=== PATIENT | male | born 1970 | race Caucasian/White ===

== ENCOUNTER 2021-11-17 18:13 | Emergency (ER) | payer OTHER ==
[~2021-11-17] VITALS: Ht 175.3 cm; Wt 123.8 kg
[2021-11-17 20:35] VITALS: BP 123/60
--- NOTE | 2021-11-17 20:55 | PHYS DOC ---
Past History Past Surgical History: Appendectomy (NAKIA HUSSEIN APRN) General Adult EDM: Chief Complaint: LOWER EXT PAIN HPI: HPI: Patient is a 51-year-old male who presents with bilateral lower extremity swelling and pain to his left lower leg that started 2 days ago. Patient reports that the swelling initially started 2 weeks ago. He reports at rest he does not have any pain but with palpation he has increased pain. Patient has a history of colon cancer, gastric bypass and GERD. He denies any injuries, chest pain, shortness of breath, abdominal or upper extremity swelling, fevers, history of DVTs, history of CHF. 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 [] HENT: Normocephalic, atraumatic, bilateral external ears normal, oropharynx moist, no oral exudates, nose normal. [] Eyes: PERRL, EOMI, conjunctiva normal, no discharge. [] Neck: Normal range of motion, no stridor Cardiovascular:Heart rate regular rhythm, no murmur [] Lungs & Thorax: Bilateral breath sounds clear to auscultation [] Abdomen: Bowel sounds normal, soft, no tenderness, obese, no masses, no pulsatile masses. [] Skin: Warm, dry, mild anterior erythema noted to anterior aspect of bilateral lower extremities Back: Normal range of motion Extremities: No tenderness, no cyanosis, no clubbing, ROM intact, 2+ pitting edema noted to right lower extremity, 3+ pittingedema noted to left lower extremity, strong DP pulse bilaterally Neurologic: Alert and oriented X 3, normal motor function, normal sensory function, no focal deficits noted. [] Psychologic: Affect normal, judgement normal, mood normal. [] (NAKIA HUSSEIN APRN) Current Patient Data: Vital Signs: Vital Signs Date Time Temp Pulse Resp B/P (MAP) Pulse Ox O2 Delivery O2 Flow Rate FiO2 11/17/21 20:35 98.0 73 24 123/60 (81) 99 Room Air (NAKIA HUSSEIN APRN) EKG: EKG: EKG performed by ER staff at 2058 shows sinus rhythm with rate of 67, QTc is 434, no STEMI read by Dr. Soriano 2100[] (NAKIA HUSSEIN APRN) Radiology/Procedures: Radiology/Procedures: [] (NAKIA HUSSEIN APRN) Impressions: STUDY: US BILATERAL LOWEREXTREMITY VENOUS DOPPLER INDICATION: Leg swelling and redness. DVT. TECHNIQUE: Color-flow and pulsed wave duplex ultrasound with compression of venous structures of the bilateral lower extremities. COMPARISON: None. FINDINGS: Duplex ultrasound with compression of the deep venous structures of the bilateral lower extremities from the common femoral vein through the popliteal vein is negative for DVT. The posterior tibial and peroneal veins are segmentally visualized and patent where seen. Normal venous waveforms and augmentation are noted throughout. Bilateral lower extremity edema. Subcentimeter short axis probable reactive lymph node at the left groin. IMPRESSION: 1. No deep venous thrombosis identified throughout either lower extremity. 2. Bilateral lower extremity edema. Electronically signed by: AUSTEN KING MD (11/17/2021 10:41 PM) [facility] DICTATED AND SIGNED BY: AUSTEN KING MD DATE: 11/17/212239 CC: VINCE SORIANO DO; NAKIA HUSSEIN APRN; YVONNE COLLADO MD ~ (VINCE SORIANO DO) Heart Score: C/O Chest Pain: No Risk Factors: Risk Factors: DM, Current or recent (<one month) smoker, HTN, HLP, family history of CAD, obesity. Risk Scores: Score 0 - 3: 2.5% MACE over next 6 weeks - Discharge Home Score 4 - 6: 20.3% MACE over next 6 weeks - Admit for Clinical Observation Score 7 - 10: 72.7% MACE over next 6 weeks - Early Invasive Strategies (NAKIA HUSSEIN APRN) Course & Med Decision Making: Course & Med Decision Making Pertinent Labs and Imaging studies reviewed. (See chart for details) [] Patient presents to the emergency department with bilateral lower extremity swelling that started 2 weeks ago and increased pain in his left lower leg that started 2 days ago. Work-up in the emergency department today consisted of blood work including BNP, EKG, chest x-ray to determine if he has any fluid overload, and ultrasound of bilateral lower extremities to rule out DVT. 2153: Patients lab work is pending at this time. Awaiting ultrasound and CXR. I discussed patients case with supervising physician and he will assume patient care at this time due to shift change. (NAKIA HUSSEIN APRN) Course & Med Decision Making The patient's ultrasound is negative for DVT. His labs are significant for anemia with a hemoglobin of 8. Have no previous for comparison. I have advised the patient continue to monitor this and his lower extremity edema with his primary care physician. He is stable for discharge at this time. (VINCE SORIANO DO) Dragon Disclaimer: Dragon Disclaimer: This electronic medical record was generated, in whole or in part, using a voice recognition dictation system. (NAKIA HUSSEIN APRN) Departure Departure: Impression: Primary Impression: Bilateral lower extremity edema Disposition: HOME / SELF CARE / HOMELESS Condition: STABLE Referrals: YVONNE COLLADO MD (PCP) Patient Instructions: Peripheral Edema NAKIA HUSSEIN APRN Nov 17, 2021 20:55 VINCE SORIANO DO Nov 17, 2021 23:02
[2021-11-17 21:35] LABS: BASO % 1 % (0-3); EOS # 0.2 x10^3/uL (0.0-0.7); EOS % 4 % (0-3); HEMATOCRIT 26.8 % (39.0-53.0); LYMPH # 1.7 x10^3/uL (1.0-4.8); LYMPH % 31 % (24-48); MEAN CORPUSCULAR HEMOGLOBIN 21 pg (25-35); MEAN CORPUSCULAR HGB CONC 30 g/dL (31-37); MEAN CORPUSCULAR VOLUME 71 fL (79-100); MONO # 0.5 x10^3/uL (0.0-1.1); MONO % 10 % (0-9); NEUT % 54 % (31-73); PLATELET COUNT 414 x10^3/uL (140-400); RED BLOOD COUNT 3.79 x10^6/uL (4.30-5.70); RED CELL DISTRIBUTION WIDTH 20.9 % (11.5-14.5); WHITE BLOOD COUNT 5.5 x10^3/uL (4.0-11.0)
[2021-11-17 21:39] LABS: CALCIUM 8.2 mg/dL (8.5-10.1); CREATININE 0.8 mg/dL (0.7-1.3); GFR 101.5; POTASSIUM 3.4 mmol/L (3.5-5.1)
--- NOTE | 2021-11-17 21:44 | RAD ---
Study: XR CHEST 1V Indication: Bilateral lower extremity swelling. Comparison: None. Findings: The cardiomediastinal silhouette and nora are within normal limits. No localized airspace opacity, pl eural effusion or pneumothorax. Impression: No acute radiographic abnormality of the chest. Electronically signed by: AUSTEN KING MD (11/17/2021 9:42 PM) [facility]
[2021-11-17 21:52] LABS: ALBUMIN 3.2 g/dL (3.4-5.0); ALBUMIN/GLOBULIN RATIO 0.9 (1.0-1.7); TOTAL BILIRUBIN 0.6 mg/dL (0.2-1.0); TOTAL PROTEIN 6.8 g/dL (6.4-8.2)
[2021-11-17 21:59] LABS: ANISOCYTOSIS MOD; HYPOCHROMIA MOD; MICROCYTOSIS MOD; PLT ESTIMATE INCREASED (ADEQUATE)
--- NOTE | 2021-11-17 22:44 | RAD ---
STUDY: US BILATERAL LOWEREXTREMITY VENOUS DOPPLER INDICATION: Leg swelling and redness. DVT. TECHNIQUE: Color-flow and pulsed wave duplex ultrasound with compression of venous structures of the bilateral lower extremities. COMPARISON: None. FINDINGS: Duplex ultrasound with compression of the deep venous structures of the bilateral lower extremities f rom the common femoral vein through the popliteal vein is negative for DVT. The posterior tibial and peroneal veins are segmentally visualized and patent where seen. Normal veno us waveforms and augmentation are noted throughout. Bilateral lower extremity edema. Subcentimeter short axis probable reactive lymph node at the left gr oin. IMPRESSION: 1. No deep venous thrombosis identified throughout either lower extremity. 2. Bilateral lower extremity edema. Electronically signed by: AUSTEN KING MD (11/17/2021 10:41 PM) [facility]
[2021-11-17] MEDS ORDERED: CEPH500T PO (23:08)
[2021-11-17] MEDS ORDERED: CEPHALEXIN 250 MG CAPSULE ONE (23:08)
[2021-11-17] MEDS ORDERED: CEPHALEXIN 250 MG CAPSULE PO ONE (23:15)
--- NOTE | 2021-11-17 23:25 | EKG ---
[address] [address] Test Date: 2021-11-17 Test Time: 20:59:48 Pat Name: MIQUEL WAGNER Department: Room: Gender: M Screening Technician: : 1970 Requested By: NAKIA HUSSEIN Order Number: [id number] Reading MD: Stephane Nagel Measurements Intervals [place] Rate: 67 P: 64 NC: 174 QRS: 26 QRSD: 98 T: -2 QT: 408 QTc: 434 Interpretive Statements SINUS RHYTHM NORMAL ECG RI6.02 No previous ECG available for comparison Electronically Signed On 11-28-2021 9:39:06 CDT by Stephane Nagel
== END 2021-11-17 23:15 | disposition home or self-care (01) ==
LOC: ER 18:13
DX: R60.0 Localized edema (principal); M79.662 Pain in left lower leg; K21.9 Gastro-esophageal reflux disease without esophagitis; Z98.84 Bariatric surgery status
CPT/HCPCS: 36415; 71045; 80053; 83880; 84484; 85025; 93005; 93970; 99285